=== PATIENT | male | born 1955 | race Caucasian/White ===

== ENCOUNTER 2016-11-12 14:13 | Emergency (ER) | payer BC ==
[~2016-11-12] VITALS: Ht 152.4 cm; Wt 66.9 kg
[~2016-11-12 14:13] MED LIST: LRT5 PO
[2016-11-12 14:14] VITALS: Ht 152.4 cm; Wt 66.9 kg
[2016-11-12] MEDS ORDERED: IBUP-103 PO (15:09)
[2016-11-12 15:23] LABS: BASO % 0.1 %; BASO ABS # 0.01 K/uL (0-0.2); COMPLETE YES; EOS % 0.5 %; IG% 0.4 %; LYMPH % 8.4 %; LYMPH ABS # 0.91 K/uL (1.2-3.4); MEAN CELL VOLUME 93.7 fL (80-100); MEAN CORPUSCULAR HEMOGLOBIN 33.7 pg (25-34); MEAN PLATELET VOLUME 8.9 fL (7.4-10.4); NEUT % 77.6 %; PLATELET COUNT 283 K/uL (130-400); RED BLOOD COUNT 4.27 M/uL (4.7-6.1); WHITE BLOOD COUNT 10.79 K/uL (4.8-10.8)
--- NOTE | 2016-11-12 15:26 | DIAGNOSTIC IMAGING REPORT ---
HEAD CT NONCONTRAST CT DOSE: 537.48 mGy.cm HISTORY: Fall, headache TECHNIQUE: Multiaxial CT images of the head were performed without the use of intravenous contrast. Automated exposure control was utilized for this study. A dose lowering technique was utilized adhering to the principles of ALARA. Comparison: None. Findings: The paranasal sinuses and mastoid air cells are clear. The calvarium and skull base are intact. The ventricles and sulci are within normal limits. There is no mass, hematoma, midline shift, or acute infarct. Impression: No acute intracranial abnormality. Electronically signed by: Perry Blue M.D. 11/12/2016 3:25 PM Dictated Date/Time: 11/12/2016 3:20 PM
[2016-11-12] MEDS ORDERED: OPTIRAY 320 IV PRN (15:30)
[2016-11-12 15:41] LABS: BUN/CREATININE RATIO 17.1 (10-20); CALCIUM 10.2 mg/dl (8.5-10.1); CREATININE 0.72 mg/dl (0.60-1.40); POTASSIUM 3.6 mmol/L (3.5-5.1)
[2016-11-12 15:44] LABS: ALB/GLOB RATIO 0.7 (0.9-2)
--- NOTE | 2016-11-12 16:18 | DIAGNOSTIC IMAGING REPORT ---
CT SCAN OF THE FACIAL BONES WITHOUT IV CONTRAST CLINICAL HISTORY: Fall with facial injury. COMPARISON STUDY: CT of the brain dated 11/12/2016. TECHNIQUE: High-resolution CT scan of the facial bones is performed. Images are reviewed in the axial, sagittal, and coronal planes. IV contrast was not administered for this examination. A dose lowering technique was utilized adhering to the principles of ALARA. FINDINGS: The skeletal structures are well mineralized. There is no evidence of facial bone fracture. The bony orbits are intact and the orbital contents are within normal limits. The zygomatic arches, nasal bones, and pterygoid plates are preserved. The maxilla and mandible are intact. There are no layering blood products within the paranasal sinuses. Trace mucosal thickening is seen in the left maxillary antrum and the frontal sinuses. The remaining paranasal sinuses the mastoid air cells are clear. The visualized calvarium and upper cervical spine are maintained. Partially imaged brain parenchyma is within normal limits. There is after sclerotic calcification of the carotid bulbs. A gas and fluid containing fluid collection is seen in the left retropharyngeal space. This measures at least 1.0 x 2.7 cm. There is associated inflammation involving the left pharyngeal soft tissues as well as induration and small foci of gas within the left parapharyngeal fat. This causes mild mass effect on the left airway. IMPRESSION: 1. There is no evidence of facial bone fracture. 2. A left retropharyngeal gas and fluid containing collection is identified, with edema of the pharyngeal soft tissues and associated induration within the left parapharyngeal fat. The appearance is highly concerning for infection/retropharyngeal abscess. See report of the contrast-enhanced CT scan of the neck performed concurrently for additional findings. Electronically signed by: Zafar Dutta M.D. 11/12/2016 4:17 PM Dictated Date/Time: 11/12/2016 4:11 PM
--- NOTE | 2016-11-12 16:25 | DIAGNOSTIC IMAGING REPORT ---
SOFT TISSUE NECK WITH HISTORY: 61 years-old Male Fall, facial and throat swelling on left acute facial and throat swelling with recent fall. COMPARISON: CT head and maxillofacial study of same day TECHNIQUE: Multiple axial CT images of the soft tissues of the neck were obtained following the intravenous administration of 116 mL Optiray 320. A dose lowering technique was used consistent with the principals of TOBI. FINDINGS: There is asymmetric soft tissue prominence and soft tissue thickening within the distribution of the left nasopharynx with a focal centrally gas containing collection centered within the region of the left adenoid tonsillar distribution measuring up to 3.0 x 3.9 x 6.1 cm in AP, transverse and craniocaudal dimension with the borders of this collection not well identified. No definite focal enhancing mass is seen. This causes opacification of the left vallecula and moderate narrowing of the airway. Additionally, there is focal high-grade stenosis or occlusion of the left internal jugular vein for a craniocaudal dimension of 3.5 cm as seen on image 124 series 5. Additionally, there is soft tissue swelling and stranding within the submandibular tissues with foci of deep tissue air adjacent to the left submandibular gland as seen on image 223 series 5. Thyroid is homogeneous. There is moderate to extensive atherosclerotic plaquing of the carotid bulbs. No acute intracranial abnormality identified. Lung apices appear clear. Bones appear intact without acute fracture. Mastoid air cells, middle ear cavities are clear. Mild mucosal thickening of the ethmoid and left maxillary sinuses. Mild facet arthropathy of the cervical spine. IMPRESSION: 1. Focal central air-filled collection of the left oral pharynx centered within the distribution of the left adenoid tonsils measures up to 3.0 x 3.9 x 6.1 cm causing moderate narrowing of the airway, very suspicious for peritonsillar abscess. Alternatively, a necrotic mass could cause a similar appearance. Follow-up with direct visualization recommended. 2. Additionally, there is mild soft tissue swelling and stranding with deep tissue air within the distribution of the left submandibular gland. 3. 3.5 cm segment of the left internal jugular vein adjacent to the above mentioned collection demonstrates little to no flow suggesting high-grade stenosis or focal occlusion, suspicious for septic thrombophlebitis. 4. No acute facial bone fracture identified. 5. Mild ethmoid and left maxillary sinus disease. The above report was generated using voice recognition software. It may contain grammatical, syntax or spelling errors. Electronically signed by: Khanh Cadet M.D. 11/12/2016 4:23 PM Dictated Date/Time: 11/12/2016 4:08 PM
[2016-11-12] MEDS ORDERED: AMPICILLIN/SULBACTAM SOD INJ 3,000 MG in SODIUM CHLORIDE 0.9% 100ML 100 ML IV STA (16:37)
--- NOTE | 2016-11-12 17:06 | EMERGENCY ROOM VISIT NOTE ---
History First contact with patient: 14:51 Chief Complaint: FALL Stated Complaint: FALL, NECK PAIN, FACE History of Present Illness The patient is a 61 year old male who presents to the Emergency Room via private vehicle referred by his family doctor, Dr. Smith of [facility] with complaints of "fall, neck pain, face". The patient states that Thursday night, he was walking into his barn, when he tripped and fell forward striking the left side of his face and head off the ground. He notes that he cut his lip. He states that since that time he has had severe headaches , trouble breathing, as well as swelling in the back of his throat. He notes that around 2 AM this morning he felt a drainage in the back of his throat and that his jaw then realigned. He is a former tobacco chewer, and also consumes about one case of beer a week. Review of Systems A complete 10-point Review of Systems was discussed with the patient, with pertinent positives and negatives listed in the History of Present Illness. All remaining Review of Systems questions can be considered negative unless otherwise specified. Past Medical/Surgical History No pertinent. Family History Heart disease, CHF. Social History Smoking Status: Never Smoker Pt. operates a farm. Current/Historical Medications Scheduled PRN Ibuprofen Tab (Advil), 400 MG PO Q6H PRN for Pain Physical Exam Vital Signs Date Time Temp Pulse Resp B/P (MAP) Pulse Ox O2 Delivery O2 Flow Rate FiO2 11/12/16 19:26 98 18 151/91 95 11/12/16 18:09 103 18 149/91 95 Room Air 11/12/16 14:14 37.1 111 18 148/82 95 Room Air Physical Exam VITAL SIGNS - Vital signs and nursing notes were reviewed. Stable. Tachycardic. GENERAL - 61-year-old male appearing his stated age who is in no acute distress. Communicates well with provider and answers questions appropriately. SKIN - Without rashes. Telangiectasias. HEAD - NC/AT. EYES - PERRL with EOMI bilaterally. Sclera anicteric. Palpebral conjunctiva pink and moist with no injection noted. EARS - No deformities of external structures noted on gross examination bilaterally. NOSE - Midline and without cyanosis. No epistaxis or purulent drainage noted. MOUTH/OROPHARYNX - Without perioral cyanosis. The left posterior tonsillar pillar is 3+, erythematous with a whitish plaque. There is also slight uvular deviation to the right. No drainage currently. Airway is patent. NECK - Neck with FROM. Supple to palpation. There is left anterior cervical lymphadenopathy noted. No nuchal rigidity. LUNGS - Chest wall symmetric without accessory muscle use, intercostals retractions, or central cyanosis. Normal vesicular breath sounds CTA B/L. No wheezes, rales, or rhonchi appreciated. CARDIAC - RRR with S1/S2. No murmur, rubs, or gallops appreciated. NEUROLOGIC - Cranial nerves II through XII grossly intact. Sensory intact to light touch throughout. PSYCH - A&O, and cooperates fully with examiner. Pt is very pleasant and interacts well with examiner. Medical Decision & Procedures ER Provider Diagnostic Interpretation: HEAD CT NONCONTRAST CT DOSE: 537.48 mGy.cm HISTORY: Fall, headache TECHNIQUE: Multiaxial CT images of the head were performed without the use of intravenous contrast. Automated exposure control was utilized for this study. A dose lowering technique was utilized adhering to the principles of ALARA. Comparison: None. Findings: The paranasal sinuses and mastoid air cells are clear. The calvarium and skull base are intact. The ventricles and sulci are within normal limits. There is no mass, hematoma, midline shift, or acute infarct. Impression: No acute intracranial abnormality. Electronically signed by: Perry Blue M.D. 11/12/2016 3:25 PM Dictated Date/Time: 11/12/2016 3:[address] SCAN OF THE FACIAL BONES WITHOUT IV CONTRAST CLINICAL HISTORY: Fall with facial injury. COMPARISON STUDY: CT of the brain dated 11/12/2016. TECHNIQUE: High-resolution CT scan of the facial bones is performed. Images are reviewed in the axial, sagittal, and coronal planes. IV contrast was not administered for this examination. A dose lowering technique was utilized adhering to the principles of ALARA. FINDINGS: The skeletal structures are well mineralized. There is no evidence of facial bone fracture. The bony orbits are intact and the orbital contents are within normal limits. The zygomatic arches, nasal bones, and pterygoid plates are preserved. The maxilla and mandible are intact. There are no layering blood products within the paranasal sinuses. Trace mucosal thickening is seen in the left maxillary antrum and the frontal sinuses. The remaining paranasal sinuses the mastoid air cells are clear. The visualized calvarium and upper cervical spine are maintained. Partially imaged brain parenchyma is within normal limits. There is after sclerotic calcification of the carotid bulbs. A gas and fluid containing fluid collection is seen in the left retropharyngeal space. This measures at least 1.0 x 2.7 cm. There is associated inflammation involving the left pharyngeal soft tissues as well as induration and small foci of gas within the left parapharyngeal fat. This causes mild mass effect on the left airway. IMPRESSION: 1. There is no evidence of facial bone fracture. 2. A left retropharyngeal gas and fluid containing collection is identified, with edema of the pharyngeal soft tissues and associated induration within the left parapharyngeal fat. The appearance is highly concerning for infection/retropharyngeal abscess. See report of the contrast-enhanced CT scan of the neck performed concurrently for additional findings. Electronically signed by: Zafar Dutta M.D. 11/12/2016 4:17 PM Dictated Date/Time: 11/12/2016 4:11 PM SOFT TISSUE NECK WITH HISTORY: 61 years-old Male Fall, facial and throat swelling on left acute facial and throat swelling with recent fall. COMPARISON: CT head and maxillofacial study of same day TECHNIQUE: Multiple axial CT images of the soft tissues of the neck were obtained following the intravenous administration of 116 mL Optiray 320. A dose lowering technique was used consistent with the principals of ALARA. FINDINGS: There is asymmetric soft tissue prominence and soft tissue thickening within the distribution of the left nasopharynx with a focal centrally gas containing collection centered within the region of the left adenoid tonsillar distribution measuring up to 3.0 x 3.9 x 6.1 cm in AP, transverse and craniocaudal dimension with the borders of this collection not well identified. No definite focal enhancing mass is seen. This causes opacification of the left vallecula and moderate narrowing of the airway. Additionally, there is focal high-grade stenosis or occlusion of the left internal jugular vein for a craniocaudal dimension of 3.5 cm as seen on image 124 series 5. Additionally, there is soft tissue swelling and stranding within the submandibular tissues with foci of deep tissue air adjacent to the left submandibular gland as seen on image 223 series 5. Thyroid is homogeneous. There is moderate to extensive atherosclerotic plaquing of the carotid bulbs. No acute intracranial abnormality identified. Lung apices appear clear. Bones appear intact without acute fracture. Mastoid air cells, middle ear cavities are clear. Mild mucosal thickening of the ethmoid and left maxillary sinuses. Mild facet arthropathy of the cervical spine. IMPRESSION: 1. Focal central air-filled collection of the left oral pharynx centered within the distribution of the left adenoid tonsils measures up to 3.0 x 3.9 x 6.1 cm causing moderate narrowing of the airway, very suspicious for peritonsillar abscess. Alternatively, a necrotic mass could cause a similar appearance. Follow-up with direct visualization recommended. 2. Additionally, there is mild soft tissue swelling and stranding with deep tissue air within the distribution of the left submandibular gland. 3. 3.5 cm segment of the left internal jugular vein adjacent to the above mentioned collection demonstrates little to no flow suggesting high-grade stenosis or focal occlusion, suspicious for septic thrombophlebitis. 4. No acute facial bone fracture identified. 5. Mild ethmoid and left maxillary sinus disease. The above report was generated using voice recognition software. It may contain grammatical, syntax or spelling errors. Electronically signed by: Khanh Cadet M.D. 11/12/2016 4:23 PM Dictated Date/Time: 11/12/2016 4:08 PM Laboratory Results 11/12/16 15:10 Red Blood Count 4.27, Mean Corpuscular Volume 93.7, Mean Corpuscular Hemoglobin 33.7, Mean Corpuscular Hemoglobin Concent 36.0, Mean Platelet Volume 8.9, Neutrophils (%) (Auto) 77.6, Lymphocytes (%) (Auto) 8.4, Monocytes (%) (Auto) 13.0, Eosinophils (%) (Auto) 0.5, Basophils (%) (Auto) 0.1, Neutrophils # (Auto ) 8.38, Lymphocytes # (Auto) 0.91, Monocytes # (Auto) 1.40, Eosinophils # (Auto ) 0.05, Basophils # (Auto) 0.01 11/12/16 15:10 Test 11/12/16 15:10 White Blood Count 10.79 K/uL (4.8-10.8) Red Blood Count 4.27 M/uL (4.7-6.1) Hemoglobin 14.4 g/dL (14.0-18.0) Hematocrit 40.0 % (42-52) Mean Corpuscular Volume 93.7 fL (80-100) Mean Corpuscular Hemoglobin 33.7 pg (25-34) Mean Corpuscular Hemoglobin Concent 36.0 g/dl (32-36) Platelet Count 283 K/uL (130-400) Mean Platelet Volume 8.9 fL (7.4-10.4) Neutrophils (%) (Auto) 77.6 % Lymphocytes (%) (Auto) 8.4 % Monocytes (%) (Auto) 13.0 % Eosinophils (%) (Auto) 0.5 % Basophils (%) (Auto) 0.1 % Neutrophils # (Auto) 8.38 K/uL (1.4-6.5) Lymphocytes # (Auto) 0.91 K/uL (1.2-3.4) Monocytes # (Auto) 1.40 K/uL (0.11-0.59) Eosinophils # (Auto) 0.05 K/uL (0-0.5) Basophils # (Auto) 0.01 K/uL (0-0.2) RDW Standard Deviation 42.9 fL (36.4-46.3) RDW Coefficient of Variation 12.5 % (11.5-14.5) Immature Granulocyte % (Auto) 0.4 % Immature Granulocyte # (Auto) 0.04 K/uL (0.00-0.02) Anion Gap 8.0 mmol/L (3-11) Est Creatinine Clear Calc Drug Dose 88.7 ml/min Estimated GFR () 118.3 Estimated GFR (Non- 102.1 BUN/Creatinine Ratio 17.1 (10-20) Calcium Level 10.2 mg/dl (8.5-10.1) Total Bilirubin 0.8 mg/dl (0.2-1) Aspartate Amino Transf (AST/SGOT) 17 U/L (15-37) Alanine Aminotransferase (ALT/SGPT) 22 U/L (12-78) Alkaline Phosphatase 55 U/L (45-117) Total Protein 7.8 gm/dl (6.4-8.2) Albumin 3.3 gm/dl (3.4-5.0) Globulin 4.5 gm/dl (2.5-4.0) Albumin/Globulin Ratio 0.7 (0.9-2) Medications Administered Medications (Trade) Dose Ordered Sig/Eliza Route Start Time Stop Time Status Last Admin Dose Admin Ampicillin Sodium/ Sulbactam Sodium 3000 mg/Sodium Chloride 108 ml @ 200 mls/hr NOW STAT IV 11/12/16 16:37 11/12/16 17:09 DC 11/12/16 17:27 200 MLS/HR Dexamethasone Sodium Phosphate (Decadron Inj) 10 mg NOW STAT IV 11/12/16 17:42 11/12/16 17:43 DC 11/12/16 18:07 10 MG Medical Decision Patient was seen and evaluated as above. He presents to us today with mechanical fall, and left throat pain. He was sent here by his family doctor. On exam there is concern of a white plaque and left unilateral tonsillar enlargement. Case was discussed with the attending physician who also personally evaluated the patient. Decision was made to then consult ENT. I spoke with Dr. Mancera regarding the case. He recommended CT scan. This was obtained and revealed concerning mass, as well as septic thrombophlebitis of the left IJ. Case was discussed then again with Dr. Mancera He was given 3 g of Unasyn per recommendation by Dr. Mancera. No leukocytosis. No concerning anemia. Sodium low at 132. No liver or kidney failure. CT head negative. Face CT better depicts the mass. I suspect he likely has underlying infection but likely malignancy. This was discussed with the patient. I believe transferred this time is best. Because of the patient's insurance, initially the decision was made to send him to the [facility] as this appears to be accepted facility. They did not have any beds. I spoke with Dr. Regalado. I then spoke with [facility], because of [facility] not accepting patients and [facility] is the next closest facility. I spoke with Dr. Luis who recommended transfer to the facility. I then spoke with the ER doctor, who accept the patient for transfer. They recommended 10 mg of Decadron by the ENT doctor. At this time he appears stable for transfer. Patient will be transferred for further evaluation and management. Evaluation treatment this patient following differential diagnoses were entertained: Peritonsillar abscess, strep pharyngitis, trauma, mass, among others. Impression Primary Impression: Fall Additional Impression: Pharyngeal abscess Departure Information Dispostion Transfer Acute Care Facility Condition POOR Referrals Sarah, Ludwin O.,M.D. (PCP) Patient Instructions My [facility] Problem Qualifiers
[2016-11-12] MEDS ORDERED: DEXAMETHASONE SOD INJ 10 MG/ML VIAL IV STA (17:42)
--- NOTE | 2016-11-12 18:42 | EMERGENCY ROOM VISIT NOTE ---
ED Visit Note First contact with patient: 14:51 I have personally evaluated this patient examined her and reviewed the pertinent labs and data. I have discussed the case with Joe Bergman,, the physician special event assistant and agree with the plan. Please refer to the PA note. This patient has a sore throat he fell a couple days ago. On exam, there is some swelling posterior throat there is some white plaque on this area as well. He felt some pus in his mouth. He is speaking and swallowing without difficulty appears in no distress. We did discuss case with ENT recommended a CT which shows a extensive mass. We have discussed the case further with ENT and they recommended transfer to tertiary care center.
[2016-11-12 19:26] VITALS: BP 151/91; PULSE 98; O2SAT 95
== END 2016-11-12 19:26 | disposition short-term general hospital (02) ==
LOC: C.EDB 14:15 → C.EDD 19:26
DX: J39.1 Other abscess of pharynx (principal); W18.09XA Striking against other object with subsequent fall, initial encounter; Y92.71 Barn as the place of occurrence of the external cause; Z87.891 Personal history of nicotine dependence; Z82.49 Family history of ischemic heart disease and other diseases of the circulatory system